=== PATIENT | female | born 1980 | race Caucasian/White ===

== ENCOUNTER 2020-02-08 01:19 | Outpatient (CLI) | payer OTHER, SELFPAY ==
[2020-02-08 18:19] LABS: SARS-CoV-2 RNA PCR Negative
== END 2020-02-08 01:20 | disposition home or self-care (01) ==
LOC: ANHCOVIDDT 01:19
PROVIDERS: PCP Pediatrics; Visit Provider Obstetrics & Gynecology
DX: Z01.812 Encounter for preprocedural laboratory examination (principal); Z20.828 Contact with and (suspected) exposure to other viral communicable diseases
CPT/HCPCS: 87635; C9803; U0003

== ENCOUNTER 2020-02-08 09:10 | Outpatient (CLI) | payer OTHER, SELFPAY | END 2020-02-08 09:11 | disposition home or self-care (01) | LOC: ANHSURGERY 09:12 | PROVIDERS: PCP Pediatrics; Visit Provider Obstetrics & Gynecology | DX: R10.2 Pelvic and perineal pain (principal) | CPT/HCPCS: 36415; 86850; 86900; 86901 ==

== ENCOUNTER 2020-02-10 01:37 | Day surgery (SDC) | payer OTHER, SELFPAY ==
[2020-02-03 09:43] VITALS: BMI 26.9
--- NOTE | 2020-02-08 08:23 | PM.IMHP ---
H&P: HPI History of Present Illness Date/Time: 02/08/20 08:23 Chief complaint: Pelvic Pain/ Left Ovarian Cyst Narrative: Abbi Stanley is a 39 year old female who is admitted for diagnostic laparoscopy and left cystectomy / possible left salpingo-oophorectomy. She has had chronic pelvic pain and ultrasound has proven a left multilocular multi septated cyst is large and irregular. Risks and benefits reviewed in great detail. She had all questions answered. She asked to proceed Review of Systems Review of Systems: All systems reviewed & are unremarkable except as noted in HPI and below PMFSH Family History Family History Father Hypertension Family history of elevated blood lipids Grandparent Family history of malignant neoplasm of stomach Family history of malignant neoplasm of cervix Family history of malignant neoplasm of breast Family history of malignant neoplasm of ovary Family history of heart disease in male family member before age 55 Other Diabetes mellitus Social History Social History Smoking packs per day: 0.5 Smoking cigarettes per day: 10.0 Years smoked: 15 Smoking pack-years: 7.50 Smoking status: Current every day smoker Tobacco type: cigarettes Alcohol intake: current Spiritual care concerns: No Meds Home Medications and Allergies Home Medications Medication Instructions Recorded Confirmed Type amitriptyline 75 mg PO HS 02/03/20 02/03/20 History bupropion HCl 150 mg PO DAILY 02/03/20 02/03/20 History topiramate 50 mg PO HS 02/03/20 02/03/20 History Allergies Allergy/AdvReac Type Severity Reaction Status Date / Time No Known Allergies Allergy Unverified 02/03/20 09:43 Exam Const: General: no acute distress Eyes: General: appearance normal, both eyes and all related structures Neck: Neck: supple and no JVD Thyroid: thyroid normal Resp: Effort & Inspection: normal respiratory effort Auscultation: clear to auscultation bilaterally Cardio: Rate: regular rate Rhythm: regular rhythm GI: Inspection: non-distended GI Palp: Yes Soft to palpation, No Tenderness to palpation present (GI) and No Guarding due to palpation present (GI) Auscultation: normal bowel sounds : General: Yes bladder normal to inspection External Female Exam: normal external appearance Speculum Exam - Vagina: normal appearance of the vagina Speculum Exam - Cervix: Cervix absent Bimanual exam- vagina & uterus: uterus absent Bimanual Exam- Adnexa, other: tender ( left ovary markedly enlarged and tender) Skin: General skin exam: no rashes or lesions noted Extrem: General: normal to inspection and no edema Psych: Mental Status: mental status grossly normal Affect: normal affect Assessment and Plan Additional Plan impression complex left ovarian cyst Plan: Laparoscopic left cystectomy / possible but left salpingo-oophorectomy
--- NOTE | 2020-02-09 12:08 | WPDANESEPPF ---
Anes - Initial Pre Proc Eval Procedure: Operation Date: 02/10/20 11:30 Proposed Procedures p Diagnostic Laparoscopy, Left Ovarian Cystectomy - Anam Rizzo MD Date/Time: 02/09/20 12:08 Surgeon: Anam Rizzo MD Pre Op Diagnosis: Pelvic Pain/ Left Ovarian Cyst Patient Data Age: 39 Gender: F Height: 1.75 m Weight: 82.55 kg Allergies Allergy/AdvReac Type Severity Reaction Status Date / Time No Known Allergies Allergy Unverified 02/03/20 09:43 Home Medications Medication Instructions Recorded Confirmed Type amitriptyline 75 mg PO HS 02/03/20 02/03/20 History bupropion HCl 150 mg PO DAILY 02/03/20 02/03/20 History topiramate 50 mg PO HS 02/03/20 02/03/20 History hydrocodone-acetaminophen [[place]] 1 tablet PO Q4H PRN #30 tablet 02/10/20 Rx Patient hx anesthesia problems: none Family hx anesthesia problems: none PMFSH Past Medical History Medical History (Updated 02/09/20 @ 12:07 by Thony Antonio DO) Anxiety Migraine Psoriasis Surgical History Surgical History (Updated 02/09/20 @ 12:07 by Thony Antonio DO) History of cholecystectomy History of tonsillectomy and adenoidectomy Family History Family History Father Hypertension Family history of elevated blood lipids Grandparent Family history of malignant neoplasm of stomach Family history of malignant neoplasm of cervix Family history of malignant neoplasm of breast Family history of malignant neoplasm of ovary Family history of heart disease in male family member before age 55 Other Diabetes mellitus Social History Social History Smoking packs per day: 0.5 Smoking cigarettes per day: 10.0 Years smoked: 15 Smoking pack-years: 7.50 Smoking status: Current every day smoker Tobacco type: cigarettes Alcohol intake: current Spiritual care concerns: No Anes - Eval Final PreProcedure Day of Procedure 02/09/20 12:08 Patient weight: overweight Heart: regular rate and rhythm Lungs: clear to auscultation and normal air movement Airway: Mallampati scale class III Neurological: alert and oriented Last oral intake: >/= 8 hours ASA classification: II Emergent: no Anesthetic plan: proceed Anesthesia type and monitoring: general ETT and standard monitoring Informed Consent: The patient's anesthetic plan and its attendant risks and benefits were discussed with the patient/family/POA. Questions were solicited and answers provided to the satisfaction of the patient/family/POA.
[2020-02-10] VITALS (8 sets, daily range): BP systolic 103–172; BP diastolic 68–88; PULSE 61–79; RESP 14–18; TEMP 36.1–36.2; O2SAT 98–100
--- NOTE | 2020-02-10 06:23 | WPDHPUPDATE1 ---
History and Physical Update Update Date/Time: 02/10/20 06:23 History and Physical has been reviewed, including an updated exam of the patient. There are NO changes in the patient's condition. Risks, benefits, and alternatives have been discussed and questions answered. Patient agrees to proceed with procedure.
[2020-02-10] MEDS: LACTATED RINGERS 1,000 ML 30 ML IV CONT ×2 (10:19→11:50)
[2020-02-10] MEDS: ACETAMINOPHEN 500 MG TABLET 1000 MG PO (10:20)
[2020-02-10] MEDS: KETOROLAC 15 MG/ML VIAL (*BKC) IV PUSH (10:20)
--- NOTE | 2020-02-10 11:38 | PM.PROC ---
Procedure Note - Detailed Date of procedure: 02/10/20 Pre-op diagnosis: Pelvic Pain/ Left Ovarian Cyst Surgeon: Anam Rizzo MD postop diagnosis: Pelvic pain/ complex left ovarian cysts that appeared to be an endometrial / pelvic adhesions Procedure: Laparoscopic left oophorectomy /lysis of adhesions Anesthesia: General endotracheal EBL: 5Cc Complications: None Findings: Absent uterus tubes and right ovary. Complex left ovarian cyst that appeared to be an endometrioma. This was adhesed to the large bowel Description of procedure: The patient was prepped and draped in the normal sterile fashion placed in the dorsal lithotomy position. Under excellent general tracheal anesthesia a sponge stick was placed in vagina and the bladder drained of clear urine. The weight the weighted speculum was removed and the gloves were changed. A supraumbilical incision was made and the Veress needle passed in the abdomen. The abdomen was filled with CO2 gas to 15mm Hg. A 5mm trocar was advanced under direct visualization assuring no injury. The patient placed in Trendelenburg and a suprapubic incision made. The 5mm trocar was advanced under direct visualization assuring no injury. This complex cyst was noted in the left lower quadrant incision made and the 10mm trocar advanced under direct visualization assuring no injury. Using sharp dissection the bowel was sharply dissected away from the complex ovary. Once this was clear irrigation was undertaken and the infundibulopelvic structure was then skeletonized as it did not it was not deemed salvageable. The infundibulopelvic structure was clamped and burned x3 to remove the left ovary. This was placed in an Endo-Catch and removed through the left lower quadrant incision. Irrigation was undertaken until clear. To help avoid further adhesions a portion large portion of Interceed was placed over the area and gently sprinkled with normal saline. The lower site was removed. The gas removed from the abdomen. The upper site removed and the incisions closed with 4 Monocryl and glue. The patient was awakened and went to recovery in satisfactory condition. All sponge, needle, instrument counts were correct. There were no immediate complications
== END 2020-02-10 13:45 | disposition home or self-care (01) ==
PROVIDERS: PCP Pediatrics; Visit Provider Obstetrics & Gynecology
PROC: (CPT 49320; principal; 2020-02-10 11:30)
DX: R10.2 Pelvic and perineal pain (principal); N83.292 Other ovarian cyst, left side
CPT/HCPCS: 58661; 88305; A9270; J0330; J1100; J1885; J2250; J2405; J2704; J3010; J7030; J7120

== ENCOUNTER 2024-09-27 07:54 | Outpatient (CLI) | payer OTHER, SELFPAY ==
--- NOTE | ~2024-09-27 | MR_ITS ---
MRI of the brain Clinical History: Multiple sclerosis Technique: Axial and sagittal T1-weighted images were acquired. These were followed by axial T2-weigh meño, diffusion weighted, gradient, and FLAIR images. Following intravenous administration of 20 cc Pr oHance gadolinium, T1-weighted fat-sat imaging was performed in the axial, sagittal, and coronal plan es. Findings: No abnormal signal seen in the brain parenchyma. No acute infarct, intracranial hemorrhage or mass lesion. No other bone marrow lesions are identified. Ventricles and subarachnoid spaces are unremarkable. Orbits are unremarkable. Paranasal sinuses and m astoid air cells are clear. Major intracranial flow voids are intact. Sagittal midline structures are intact. No abnormal postcontrast enhancement identified. IMPRESSION: Normal exam. Reviewed, dictated and finalized at location . IMPRESSION: Normal exam.
--- OUTSIDE RECORDS SUMMARY | 2024-09-27 08:03 | XMS_ITS ---
Author Organization [facility] Address [address] [place] [address] Care Team Providers Care Coder Name Role Phone Cirilo Camejo MD Primary Care Provider Unavail able YAJAIRA GIBBS, GASTON Unavailable [phone] Edgardo GIBBS, Betzaida Unavailable Unavailable REASON FOR VISIT Refer to [facility] Encounters Encounter Location Date Provider Diagnosis [facility] [address] [place] [address] 04/20/2024 G[facility] GATES PLAN OF TREATMENT No Information Progress Notes * Abbi NIELSENeDOB: 1980 (43 yo F)Acc No.[id number]:04/20/2024 Patient: Abbi NIELSEN :1980 Age:43 Y Sex:Female [facility] [address] * true * Date:
--- OUTSIDE RECORDS SUMMARY | 2024-09-27 08:04 | XMS_ITS | Patient Health Record ---
Author Organization [facility] Address [address] [place] [address] Care Team Providers Care Fabric Awning Repairer Name Role Phone Bashir AZUL, Cirilo Primary Care Provider Unavail able YAJAIRA GIBBS, GASTON Unavailable Edgardo GIBBS, Betzaida Unavailable Unavailable ALLERGIES No Known Allergies REASON FOR REFERRAL Reason EUS to assess pancre atic parenchyma; r/o chronic pancreatitis, papillary stenosis Scheduled for 02/22/24 1200 Diagnosis 1 Right upper quadrant pain (R10.11) Diagnosis 2 Spasm of sphincter o f Oddi (K83.4) Diagnosis 3 Other specified dise ases of biliary tract (K83.8) Referral Organization [facility] Referring Provider First Name GASTON Referring Provider Last Name YAJAIRA Referring Provider [facility] Gastrobravo colón Referred Organization [facility] - Op Referred Provider Case Vela Referred Address [address],[place], [id number], Referred Provider Specialty Gastroentero logy Procedure 1 ENDOSCOPIC ULTRASOUN D EXAM (56343) Referral Priority Routine Referral Appointment Date 02/22/2024 Reason Please schedule OV t o discuss poss ERCP Diagnosis 1 Right upper quadrant pain (R10.11) Diagnosis 2 Other specified dise ases of biliary tract (K83.8) Diagnosis 3 Spasm of sphincter o f Oddi (K83.4) Referral Organization [facility] Referring Provider First Name GASTON Referring Provider Last Name YAJAIRA Referring Provider Speciality Gastrobravo colón Referred Provider Case Vela Referred Provider Specialty Gastroentero logy Referral Priority Routine MEDICATIONS Medication SIG (Take, Route, Frequency, Duration) Notes Start Date End Date Status Wellbutrin 25 mg in AM Not-Yeison ing Amitriptyline HCl 100 MG 1 tablet at bedtime Orally Once a day for 30 days 02/17/2018 Active Topamax 25 MG 1 tablet Orally Twice a day for 30 day(s) Not-Taking Omeprazole 40 MG 1 capsule 30 minutes before morning meal Orally Once a day Active buPROPion HCl 100 MG 1 tablet Orally Twice a day Active clonazePAM 0.5 MG 1 tablet at bedtime Orally Once a day Active Ondansetron 4 MG 1 tablet on the tongue and allow to dissolve Orally Once a day Active Zonisamide 100 MG 2 capsule Orally Once a day Active Gabapentin 600 MG 1 tablet Orally Once a day Active Dicyclomine HCl 10 MG 1 capsules Orally up to four times a day as needed for abdominal pain/spasms for 30 day(s) 06/23/2018 Active Hyoscyamine Sulfate ER 0.375 MG 1 tablet Orally every 12 hrs for 30 day(s) 01/02/2023 Not-Taking Colestipol HCl 1 GM 2 TABLETS ORALLY ONCE A DAY 30 DAY(S) for 30 Active SOCIAL HISTORY Tobacco Use: Social History Observation Description Date Details (start date - stop date) Current Smoker NA - NA Sex Assigned At : Social History Observation Description Sex Assigned At Unknown Tobacco Use/Smoking Question Answer Notes Are you a current smoker How often do you smoke cigarettes? every day How many cigarettes a day do you smoke? 6-10 PROBLEMS Problem Type ICD Code Onset Dates Problem Status W/U Status Risk SNOMED Code Notes Problem Irritable bowel syndrome with diarrhea (K58.0) Active confirmed Irritable b owel syndrome with diarrhea (217593085) Problem Spasm of sphincter of Oddi (K83.4) Active confirmed Spasm of sphincter of Oddi (55907996) Problem Other specified diseases of biliary tract (K83.8) Active confirmed Disorder of biliary tract (945428067) Problem Irritable bowel syndrome with constipation (K58.1) Active confirmed Irritable bowel syndrome characterized by constipation (705628571) VITAL SIGNS Heart Rate 89 /min 01/15/2024 Blood pressure diastolic 83 mm Hg 01/15/2024 Height 69.0 in 01/15/2024 Blood pressure systolic 132 mm Hg 01/15/2024 Weight 198 lbs 01/15/2024 BMI 29.24 kg/m2 01/15/2024 Encounters Encounter Location Date Provider Diagnosis [facility] [address] [place] [address] 01/15/2024 GASTON GATES Right upper quadrant pain R10.11 and Diarrhea, unspecified R19.7 [facility] [address] [place] [address] 01/15/2024 GASTON GATES [facility] [address] [place] [address] 03/03/2024 GASTON GATES [facility] [address] [place] [address] 04/20/2024 GASTON GATES ASSESSMENTS Encounter Date Diagnosis Assessment Notes Treatment Notes Treatment Clinical Notes Section Notes 01/15/2024 Right upper quadrant pain (ICD-10 - R10.11) Possible etiologies include, but not limited to, microlithiasis or sludge with partial common bile or pancreatic duct obstruction, with or without associated sphincter of Oddi dysfunction, pancreas divisum, functional GI, visceral hypersensitivity, IBS, chronic pancreatitis, neoplasia, other. edcuated on importance of low fat diet EGD/EUS to be scheduled discussed possible ERCP 01/15/2024 Diarrhea, unspecified (ICD-10 - R19.7) will trial colestipol at this time and see if this helps with complaints as she is on high dose of TCA and taking dicyclomine with no relief 01/15/2024 Other Time spent: 35minutes. More than 50% spent reviewing diagnostic results, compliance with current medical therapy, counseling patient on low fat diet, weight reduction to normal BMI, normal BMI discussed, avoidance of ETOH/tobacco products, discussing treatment options. Have discussed details of EUS and/or ERCP procedure including indications/risks/exp ected outcomes/limitations/ possible medication side effects, and alternatives to procedure. All questions answered and patient expresses understanding. No contraindications noted. Instructed patient regarding management plan, follow-up visits, and stressed importance of compliance with plan. PLAN OF TREATMENT Pending Test Test Name Order Date MRI : Abdomen with and without Contrast 03/11/2024 Insurance Providers Payer Name Payer Address Payer Phone Subscriber Number Group Number Insured Name Patient Relationship to Insured Coverage Start Date Coverage End Date Cindi Pratt [facility] [address] [address] [place] [address] [phone] [id number] Abbi Figueroa Self - patient is the insured MEDICAL (GENERAL) HISTORY Medical History History ICD Code GERD IBS-D Biliary dyskinesia Suspected SOD Migraines anxiety Surgical History Surgery Date(Month/Year) Cholecystectomy 06/15/2012 Colonoscopy:[facility] -- Normal-- TI a nd colon bx neg. 09/26/2012 Egd/endoscopy:[facility]-- normal 06/25/2011 Egd/endoscopy:[facility] -- gastritis, neg gastric and duodenal bx 11/26/2012 Tonsillectomy/adenoidectomy 06/15/1986 Tubal ligation 2018
--- OUTSIDE RECORDS SUMMARY | 2024-09-27 08:04 | XMS_ITS ---
Author Organization [facility] Address [address] [place] [address] Care Team Providers Care Hotel Superintendent Name Role Phone Cirilo Camejo MD Primary Care Provider Unavail able YAJAIRA GIBBS, GASTON Unavailable Edgardo GIBBS, Betzaida Hartman Unavailable REASON FOR VISIT MRCP 10.27 Encounters Encounter Location Date Provider Diagnosis [facility] [address] [place] [address] 03/03/2024 G[facility] GATES PLAN OF TREATMENT No Information Progress Notes * Abbi NIELSENeDOB: 1980 (43 yo F)Acc No.[id number]:03/03/2024 Patient: Abbi NIELSEN :1980 Age:43 Y Sex:Female [facility] [address] * true * Date:
--- OUTSIDE RECORDS SUMMARY | 2024-09-27 08:04 | XMS_ITS ---
Author Organization [facility] Address [address] [place] [address] Care Team Providers Care Edger Machine Helper Name Role Phone Cirilo Camejo MD Primary Care Provider Unavail able YAJAIRA GIBBS, GASTON Unavailable [phone] Edgardo GIBBS, Betzaida Unavailable Unavailable REASON FOR VISIT EUS Encounters Encounter Location Date Provider Diagnosis [facility] [address] [place] [address] 01/15/2024 G[facility] GATES PLAN OF TREATMENT No Information Progress Notes * Abbi NIELSENeDOB: 1980 (43 yo F)Acc No.[id number]:01/15/2024 Patient: Abbi NIELSEN :1980 Age:43 Y Sex:Female Address:[facility] [place], [address] * true * Date:
== END 2024-09-27 07:55 | disposition home or self-care (01) ==
PROVIDERS: PCP Pediatrics; Visit Provider Psychiatry & Neurology Neurology
DX: G35 Multiple sclerosis (principal)
CPT/HCPCS: 70553; A9579

== ENCOUNTER 2025-03-23 06:59 | Outpatient (CLI) | payer OTHER, SELFPAY ==
--- NOTE | ~2025-03-23 | MR_ITS ---
EXAMINATION: MR cervical spine wo con DATE: 03/23/2025 07:27 INDICATION: Radiculopathy, cervical region. TECHNIQUE: Magnetic resonance imaging (MRI) of the cervical spine was performed without intravenous contrast. COMPARISON: None FINDINGS: There is 6 degrees levocurvature of cervicothoracic spine. Vertebral body heights are normal. There is moderately decreased disc height at C5-C6 and mildly decreased disc height at C6-C7. The spinal cord signal intensity is normal. The following disc levels are specifically discussed: C2-C3: The disc does not extend beyond the endplate margin. There is no uncovertebral joint osteoarthritis. There is mild bilateral facet joint osteoarthritis. There is no neural foraminal stenosis. There is no central canal stenosis. C3-C4: There is a central extrusion. There is moderate bilateral uncovertebral joint osteoarthritis. There is mild right and moderate left facet joint osteoarthritis. There is mild bilateral neural foraminal stenosis. There is mild central canal stenosis. C4-C5: There is a central protrusion. There is mild right and moderate left uncovertebral joint osteoarthritis. There is mild right and severe left facet joint osteoarthritis. There is mild bilateral neural foraminal stenosis. There is mild central canal stenosis. C5-C6: The disc is bulging with superimposed right central extrusion. There is mild right and moderate left uncovertebral joint osteoarthritis. There is moderate right and mild left facet joint osteoarthritis. There is moderate right and mild left neural foraminal stenosis. There is mild central canal stenosis at the midline. There is severe stenosis of right lateral recess. C6-C7: There is a central extrusion. There is mild bilateral uncovertebral joint osteoarthritis. There is mild bilateral facet joint osteoarthritis. There is no neural foraminal stenosis. There is mild central canal stenosis. C7-T1: There is a central extrusion. There is no uncovertebral joint osteoarthritis. There is moderate bilateral facet joint osteoarthritis. There is mild bilateral neural foraminal stenosis. There is no central canal stenosis. IMPRESSION: 1. Severe spondylosis at C5-C6 and mild spondylosis at other levels. Reviewed, dictated and finalized at location E.
== END 2025-03-23 07:00 | disposition home or self-care (01) ==
LOC: MICIMG 07:00
PROVIDERS: PCP Psychiatry & Neurology Neurology; Visit Provider Psychiatry & Neurology Neurology
DX: M54.12 Radiculopathy, cervical region (principal); M54.81 Occipital neuralgia; G43.909 Migraine, unspecified, not intractable, without status migrainosus
CPT/HCPCS: 72141